=== PATIENT | male | born 2000 | race Hispanic/Latino ===

== ENCOUNTER 2024-01-13 11:06 | Emergency (ER) | payer SELFPAY ==
[2024-01-13] MEDS ORDERED: Morphine 4 MG/ML VIAL ONE (11:44)
[2024-01-13] MEDS ORDERED: Ondansetron PF 4 MG/2 ML Vial ONE ×2 (11:45→16:20)
[2024-01-13 11:53] LABS: #Basophils 0.02 10x3/uL (0.0-0.2); #Eosinphils 0.03 10x3/uL (0.0-0.5); #Monocytes 0.92 10x3/uL (0.0-1.1); #Neutrophils 8.43 10x3/uL (1.5-8.4); %Basophils 0.2 % (0.0-2.0); %Eosinophils 0.3 % (0.0-6.0); %Lymphocytes 13.1 % (18.0-47.0); %Monocytes 8.5 % (0.0-10.0); %Neutrophils 77.5 % (40.0-75.0); Hematocrit 45.7 % (38.8-50.0); Mean Corpuscular Hemoglobin 29.7 pg (27.0-33.0); Mean Corpuscular Volume 84.9 fL (81.2-95.1); Mean Platelet Volume 11.1 fL (7.4-10.4); Platelet Count 169 10x3/uL (150-450); RBC Distribution Width 12.8 % (11.5-14.5); Red Blood Cell (RBC) Count 5.38 10x6/uL (4.32-5.72); White Blood Cell (WBC) Count 10.9 10x3/uL (3.5-10.5)
[2024-01-13 12:04] LABS: ALT (SGPT) 36 U/L (8-55); AST (SGOT) 24 U/L (5-34); Albumin 4.3 g/dL (3.5-5.0); Alkaline Phosphatase 74 U/L (40-110); Anion Gap 13 mmol/L (10-20); BUN (Urea Nitrogen) 16 mg/dL (8.9-20.6); Bilirubin, Total 1.5 mg/dL (0.2-1.2); Calc. Creatinine Clearance 0 mL/min (70-130); Calcium 9.6 mg/dL (7.8-10.44); Carbon Dioxide 24 mmol/L (22-29); Chloride 104 mmol/L (98-107); Estimated GFR 127; Globulin 3.5 g/dL (2.4-3.5); Glucose 97 mg/dL (70-105); Lipase 17 U/L (8-78); Potassium 3.9 mmol/L (3.5-5.1); Protein, Total 7.8 g/dL (6.0-8.3); Sodium 137 mmol/L (136-145)
[2024-01-13 12:07] LABS: Bilirubin Neg (Negative); Blood, Urine Negative (Negative); Clarity Clear (Clear); Glucose, Urine (Dipstick) Normal (Negative); Ketone, Urine Negative (Negative); Leukocyte Negative (Negative); Nitrite Negative (Negative); Protein, Urine (Dipstick) Negative (Neg-Trace); Urobilinogen Normal mg/dL (Less than 2)
[2024-01-13 12:45] LABS: Bacteria/HPF None Seen HPF (None Seen); CAUTI Indications for Culture Pelvic or flank pain; RBC/HPF 0-3 HPF (0-3); Squamous Epithelial 0-3 HPF (0-3); WBC/HPF 0-3 HPF (0-3)
[2024-01-13 12:46] LABS: Urine Culture Reflex No No
[2024-01-13] MEDS ORDERED: Piperacillin/Tazobactam 3.375 GM VIAL ONE (12:50)
[2024-01-13] MEDS ORDERED: Bupivacaine 0.25% HCL 30 ML VIAL ONE (15:08)
[2024-01-13] MEDS ORDERED: EPINEPHrine 1 MG/ML VIAL ONE (15:08)
[2024-01-13] MEDS ORDERED: PROPOFOL 20 ML ONE (15:34)
[2024-01-13] MEDS ORDERED: Rocuronium Bromide 10 MG/ML (10ML VIAL) ONE (15:34)
[2024-01-13] MEDS ORDERED: Lidocaine 2% PF 5 ML VIAL ONE (15:34)
[2024-01-13] MEDS ORDERED: Fentanyl 250 MCG/5 ML VIAL ONE (15:34)
[2024-01-13] MEDS ORDERED: Ketorolac Tromethamine 30 MG (1 mL) VIAL ONE (16:20)
[2024-01-13] MEDS ORDERED: Dexamethasone 20 MG/5 ML VIAL ONE (16:20)
[2024-01-13] MEDS ORDERED: SUGAMMADEX SODIUM 200 MG/2 ML VIAL ONE (16:47)
== END 2024-01-13 16:04 | disposition home or self-care (01) ==
LOC: CSHERS 11:06
DX: K35.80 Unspecified acute appendicitis (principal)
CPT/HCPCS: 36415; 71045; 74177; 80053; 81001; 83605; 83690; 85025; 87040; 88304; 93005; 96361; 96365; 96375; J0171; J0665; J1100; J1885; J2001; J2270; J2405; J2543; J2704; J3010